=== PATIENT | male | born 1935 | race Caucasian/White ===

== ENCOUNTER → 2017-08-15 | Outpatient (CLI) | payer MEDICARE ==
[2017-08-15 16:57] LABS: TOTAL 25(OH) VITAMIN D 43.7 NG/ML (30.0-100.0)
[2017-08-15 17:07] LABS: ALBUMIN 3.7 GM/DL (3.2-5.2); ALBUMIN/GLOBULIN RATIO 1.12 (1.00-1.93); ALKALINE PHOSPHATASE 53 U/L (45-117); ALT/SGPT 22 U/L (12-78); ANION GAP 4 MEQ/L (8-16); AST/SGOT 19 U/L (7-37); BILIRUBIN,TOTAL 0.4 MG/DL (0.2-1.0); BLOOD UREA NITROGEN 14 MG/DL (7-18); CALCIUM LEVEL 8.3 MG/DL (8.8-10.2); CARBON DIOXIDE LEVEL 33 MEQ/L (21-32); CHLORIDE LEVEL 104 MEQ/L (98-107); CHOLESTEROL LEVEL 142 MG/DL (<200); CHOLESTEROL RISK RATIO 2.448 (<5); CREATININE FOR GFR 0.92 MG/DL (0.70-1.30); GLOMERULAR FILTRATION RATE > 60.0 (>35); GLUCOSE, FASTING 87 MG/DL (70-100); HDL CHOLESTEROL 58 MG/DL (>40); LDL CHOLESTEROL 71.8 MG/DL (<100); NON-HDL-C 84 MG/DL; POTASSIUM SERUM 4.8 MEQ/L (3.5-5.1); PROSTATIC SPECIFIC AG MONITOR 0.31 NG/ML (< 4.0); SODIUM LEVEL 141 MEQ/L (136-145); TRIGLYCERIDES LEVEL 61 MG/DL (<150)
[2017-08-15 17:40] LABS: BASO % 0.7 % (0.0-1.0); EOS # 0.1 10^3/uL (0.0-0.50); EOS % 2.6 % (0.0-3.0); HEMATOCRIT 41.4 % (42.0-52.0); HEMOGLOBIN 13.3 g/dl (13.5-17.5); IMMATURE GRANULOCYTE % 0.2 % (0-3.0); LYMPH # 1.3 10^3/uL (1.5-4.5); MEAN CORPUSCULAR HEMOGLOBIN 31.1 pg (27.0-33.0); MEAN CORPUSCULAR HGB CONC 32.1 g/dl (32.0-36.5); MONO # 0.6 10^3/uL (0.0-0.8); MONO % 12.1 % (0.0-5.0); NEUTROPHILS # 2.6 10^3/uL (1.8-7.7); NEUTROPHILS % 56.4 % (36.0-66.0); PLATELET COUNT, AUTOMATED 199 10^3/uL (150-450); RED BLOOD COUNT 4.27 10^6/uL (4.30-6.10); RED CELL DISTRIBUTION WIDTH 12.3 % (11.5-14.5); WHITE BLOOD COUNT 4.5 10^3/uL (4.0-10.0)
== END ==
LOC: M WUC 10:49
DX: E55.9 Vitamin D deficiency, unspecified (principal); N42.9 Disorder of prostate, unspecified; I10 Essential (primary) hypertension; Z79.899 Other long term (current) drug therapy
CPT/HCPCS: 80053

== ENCOUNTER → 2018-04-16 | Outpatient (REF) | payer MEDICARE ==
[2018-04-16 14:26] LABS: HEMOGLOBIN A1c 5.8 %
[2018-04-16 15:10] LABS: CPK CREATINE PHOSPHOKINASE 51 U/L (39-308); TOTAL PROTEIN 7.3 GM/DL (6.4-8.2)
[2018-04-16 15:17] LABS: VITAMIN B12 LEVEL 265 PG/ML
[2018-04-16 15:18] LABS: FOLATE 7.4 NG/ML
[2018-04-19 00:06] LABS: VITAMIN E(ALPHA TOCOPHEROL) 9.7 mg/L (9.0-29.0); VITAMIN E(GAMMA TOCOPHEROL) 0.9 mg/L (0.5-4.9)
[2018-04-21 10:14] LABS: ALBUMIN 4.17 GM/DL (3.29-5.55); ALBUMIN % 57.1 % (55.8-66.1); ALPHA-1-GLOBULIN % 3.2 % (2.9-4.9); ALPHA-1-GLOBULINS 0.23 GM/DL (0.17-0.41); ALPHA-2-GLOBULINS 0.77 GM/DL (0.42-0.99); ALPHA-2-GLOBULINS % 10.6 % (7.1-11.8); BETA-1-GLOBULINS 0.42 GM/DL (0.28-0.60); BETA-1-GLOBULINS % 5.8 % (4.7-7.2); BETA-2-GLOBULINS 0.42 GM/DL (0.19-0.55); BETA-2-GLOBULINS % 5.7 % (3.2-6.5); GAMMA GLOBULIN % 17.6 % (11.1-18.8); GAMMA GLOBULINS 1.28 GM/DL (0.65-1.58)
[2018-04-21 10:16] LABS: CERULOPLASMIN 20.7 mg/dL (16.0-31.0); VITAMIN B1 LEVEL WHOLE BLOOD 88.1 nmol/L (66.5-200.0)
== END ==
LOC: M LABNEURO 13:45
PROVIDERS: ATTEND Psychiatry & Neurology Neurology
DX: E11.9 Type 2 diabetes mellitus without complications (principal); G62.9 Polyneuropathy, unspecified; G72.9 Myopathy, unspecified; T56.4X1A Toxic effect of copper and its compounds, accidental (unintentional), initial encounter

== ENCOUNTER → 2018-09-03 | Outpatient (REF) | payer MEDICARE ==
[2018-09-03 18:03] LABS: FOLATE 7.9 NG/ML; VITAMIN B12 LEVEL > 2000 PG/ML
[2018-09-09 00:07] LABS: VITAMIN B1 LEVEL WHOLE BLOOD 144.2 nmol/L (66.5-200.0); VITAMIN E(ALPHA TOCOPHEROL) 12.6 mg/L (9.0-29.0); VITAMIN E(GAMMA TOCOPHEROL) 1.6 mg/L (0.5-4.9)
== END ==
LOC: M LABNEURO 13:39
PROVIDERS: ATTEND Psychiatry & Neurology Neurology
DX: M79.2 Neuralgia and neuritis, unspecified (principal)

== ENCOUNTER → 2018-09-28 | Outpatient (CLI) | payer MEDICARE ==
[2018-09-28 09:27] LABS: BASO % 0.8 % (0.0-1.0); EOS # 0.1 10^3/uL (0.0-0.50); EOS % 3.4 % (0.0-3.0); HEMATOCRIT 38.8 % (42.0-52.0); HEMOGLOBIN 12.9 g/dl (13.5-17.5); LYMPH # 1.1 10^3/uL (1.5-4.5); LYMPH % 28.2 % (24.0-44.0); MEAN CORPUSCULAR HGB CONC 33.2 g/dl (32.0-36.5); MEAN CORPUSCULAR VOLUME 96.3 fl (80.0-96.0); MONO # 0.5 10^3/uL (0.0-0.8); MONO % 13.5 % (0.0-5.0); NEUTROPHILS % 53.8 % (36.0-66.0); PLATELET COUNT, AUTOMATED 179 10^3/uL (150-450); RED BLOOD COUNT 4.03 10^6/uL (4.30-6.10); WHITE BLOOD COUNT 3.8 10^3/uL (4.0-10.0)
[2018-09-28 10:00] LABS: ALBUMIN 3.4 GM/DL (3.2-5.2); ALT/SGPT 16 U/L (12-78); BILIRUBIN,TOTAL 0.5 MG/DL (0.2-1.0); BLOOD UREA NITROGEN 10 MG/DL (7-18); CARBON DIOXIDE LEVEL 31 MEQ/L (21-32); CHLORIDE LEVEL 104 MEQ/L (98-107); CHOLESTEROL LEVEL 138 MG/DL (<200); CHOLESTEROL RISK RATIO 2.421 (<5); CREATININE FOR GFR 0.93 MG/DL (0.70-1.30); GLOMERULAR FILTRATION RATE > 60.0 (>35); GLUCOSE, FASTING 89 MG/DL (70-100); HDL CHOLESTEROL 57 MG/DL (>40); LDL CHOLESTEROL 70 MG/DL (<100); NON-HDL-C 81 MG/DL; POTASSIUM SERUM 4.4 MEQ/L (3.5-5.1); PROSTATIC SPECIFIC AG MONITOR 0.34 NG/ML (< 4.00); SODIUM LEVEL 139 MEQ/L (136-145); TOTAL PROTEIN 6.5 GM/DL (6.4-8.2); TRIGLYCERIDES LEVEL 56 MG/DL (<150)
[2018-09-28 10:14] LABS: TOTAL 25(OH) VITAMIN D 40.9 NG/ML (30.0-100.0)
== END ==
LOC: M WUC 08:13
PROVIDERS: ATTEND Family Medicine
DX: E55.9 Vitamin D deficiency, unspecified (principal); I10 Essential (primary) hypertension; N42.9 Disorder of prostate, unspecified

== ENCOUNTER → 2019-04-13 | Outpatient (CLI) | payer MEDICARE ==
[2019-04-13 17:51] LABS: HEMATOCRIT 43.1 % (42.0-52.0); HEMOGLOBIN 13.5 g/dl (13.5-17.5); MEAN CORPUSCULAR HEMOGLOBIN 30.8 pg (27.0-33.0); MEAN CORPUSCULAR HGB CONC 31.3 g/dl (32.0-36.5); MEAN CORPUSCULAR VOLUME 98.2 fl (80.0-96.0); PLATELET COUNT, AUTOMATED 223 10^3/uL (150-450); RED BLOOD COUNT 4.39 10^6/uL (4.30-6.10); WHITE BLOOD COUNT 5.3 10^3/uL (4.0-10.0)
[2019-04-13 18:04] LABS: ALBUMIN 3.8 GM/DL (3.2-5.2); ALT/SGPT 19 U/L (12-78); BILIRUBIN,TOTAL 0.4 MG/DL (0.2-1.0); BLOOD UREA NITROGEN 17 MG/DL (7-18); CALCIUM LEVEL 8.6 MG/DL (8.8-10.2); CARBON DIOXIDE LEVEL 31 MEQ/L (21-32); CHLORIDE LEVEL 99 MEQ/L (98-107); CREATININE FOR GFR 1.05 MG/DL (0.70-1.30); GLOMERULAR FILTRATION RATE > 60.0 (>35); GLUCOSE, FASTING 77 MG/DL (70-100); POTASSIUM SERUM 4.6 MEQ/L (3.5-5.1); SODIUM LEVEL 135 MEQ/L (136-145); TOTAL PROTEIN 7.4 GM/DL (6.4-8.2)
[2019-04-13 18:11] LABS: TOTAL 25(OH) VITAMIN D 38.6 NG/ML (30.0-100.0); VITAMIN B12 LEVEL 947 PG/ML (247-911)
== END ==
LOC: M WUC 13:41
PROVIDERS: ATTEND Family Medicine
DX: G62.9 Polyneuropathy, unspecified (principal); E55.9 Vitamin D deficiency, unspecified; I10 Essential (primary) hypertension

== ENCOUNTER → 2019-10-08 | Outpatient (CLI) | payer MEDICARE ==
[2019-10-08 09:06] LABS: BASO % 0.4 % (0.0-1.0); EOS # 0.4 10^3/uL (0.0-0.5); EOS % 4.8 % (0.0-3.0); HEMATOCRIT 39.3 % (42.0-52.0); HEMOGLOBIN 12.7 g/dl (13.5-17.5); LYMPH # 1.2 10^3/uL (1.5-5.0); LYMPH % 14.8 % (24.0-44.0); MEAN CORPUSCULAR HEMOGLOBIN 30.5 pg (27.0-33.0); MEAN CORPUSCULAR HGB CONC 32.3 g/dl (32.0-36.5); MEAN CORPUSCULAR VOLUME 94.5 fl (80.0-96.0); MONO # 0.9 10^3/uL (0.0-0.8); MONO % 11.4 % (0.0-5.0); NEUTROPHILS # 5.4 10^3/uL (1.5-8.5); NEUTROPHILS % 68.2 % (36.0-66.0); PLATELET COUNT, AUTOMATED 272 10^3/uL (150-450); RED BLOOD COUNT 4.16 10^6/uL (4.30-6.10); WHITE BLOOD COUNT 7.9 10^3/uL (4.0-10.0)
[2019-10-08 10:12] LABS: ALBUMIN 3.2 GM/DL (3.2-5.2); ALT/SGPT 13 U/L (12-78); BILIRUBIN,TOTAL 0.5 MG/DL (0.2-1.0); BLOOD UREA NITROGEN 13 MG/DL (7-18); CALCIUM LEVEL 8.4 MG/DL (8.8-10.2); CARBON DIOXIDE LEVEL 30 MEQ/L (21-32); CHLORIDE LEVEL 102 MEQ/L (98-107); CREATININE FOR GFR 0.98 MG/DL (0.70-1.30); GLOMERULAR FILTRATION RATE > 60.0 (>35); GLUCOSE, FASTING 94 MG/DL (70-100); POTASSIUM SERUM 4.8 MEQ/L (3.5-5.1); SODIUM LEVEL 138 MEQ/L (136-145)
--- NOTE | 2019-10-08 10:22 | ECGEPIP ---
[facility] Test Date: 2019-10-08 Pat Name: RITCHIE KWAN Department: Room: - Gender: Male Or Manager: DAMIAN : 1935 Requested By: Gustavo Mathews Order Number: [id number] Reading MD: Dai García Measurements Intervals [place] Rate: 75 P: 83 NV: 191 QRS: 30 QRSD: 138 T: 3 QT: 417 QTc: 468 Interpretive Statements SINUS RHYTHM RIGHT BUNDLE BRANCH BLOCK PROLONG QTC NO PRIOR Electronically Signed on 10-08-2019 10:22:36 EDT by Dai García
--- NOTE | 2019-10-08 10:27 | REP ---
CHEST, TWO VIEWS: COMPARISON: 07/13/2008 There is no acute infiltrate. The lungs are clear. The heart is normal in size. There is mild calcification and ectasia of the thoracic aorta. Mediastinal silhouette is unchanged. Metallic clips are seen in the left neck soft tissues as on prior study. IMPRESSION: No acute pulmonary disease. Electronically Signed by Khari Byrd MD 10/10/2019 11:01 P
== END ==
LOC: M LAB 08:00
PROVIDERS: ATTEND Podiatrist
DX: M20.42 Other hammer toe(s) (acquired), left foot (principal)

== ENCOUNTER 2019-10-29 06:27 | Day surgery (SDC) | payer MEDICARE ==
[2019-10-29] MEDS ORDERED: ceFAZolin 2 GM/D5W 50 ML IV BAG (J0690 PER 500MG) ONE (06:34)
[2019-10-29] MEDS ORDERED: dexameTHASONE 4 MG/ML 1ML VIAL (J1100 PER 1MG) As Ordered ONE (07:05)
[2019-10-29] MEDS ORDERED: BUPIVACAINE HCL 0.5% 30 ML VIAL As Ordered ONE (07:05)
[2019-10-29] MEDS ORDERED: LIDOCAINE 2% MDV 20ML VIAL As Ordered ONE (07:05)
[2019-10-29] MEDS ORDERED: NEOSPORIN GU IRRIG 20 ML VIAL As Ordered ONE (07:06)
[2019-10-29] MEDS ORDERED: BACITRACIN PWD 50,000 UNITS VIAL As Ordered ONE ×2 (07:06→07:11)
[2019-10-29] MEDS ORDERED: propofoL 200 MG/20 ML VIAL As Ordered ONE ×2 (07:16→08:30)
[2019-10-29] MEDS ORDERED: LIDOCAINE 2% 100MG/5ML SDV (FOR ANES.) As Ordered ONE (07:16)
[2019-10-29] MEDS ORDERED: ePHEDrine SULFATE 25 MG/5 ML(5MG/ML) SYRINGE As Ordered ONE (09:43)
[2019-10-29] MEDS ORDERED: KETAMINE HCL 200 MG/20 ML VIAL As Ordered ONE (09:45)
--- NOTE | 2019-12-20 07:18 | REP ---
PORTABLE LEFT FOOT: 3-VIEWS HISTORY: Postop. [place]. This report was delayed due to a malware attack on this facility. FINDINGS: Portable obtained 3-view left foot series demonstrates the first metatarsal osteotomy pin in good position. There is overlying dressing material. There are pins through the DIP and PIP joints of the second, third and fourth digits. Osteotomies have been performed of the second through fifth proximal phalanges with resection of each distal portion of each proximal phalanx. IMPRESSION: Postoperative changes, as above. JULIANA
--- NOTE | 2020-01-06 09:05 | RO ---
Date of Operation: 10/29/2019 Surgeon: Gustavo Mathews DPM Hand Profiler: None. 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 2. Hammertoe deformity, 2nd toe, left foot. 3. Hammertoe deformity, 3rd toe, left foot. 4. Hammertoe deformity, 4th toe, left foot. 5. Hammertoe deformity, 5th toe, left foot. Post-op diagnosis: Procedure: Irrigation: Dilute bacitracin, neomycin, polymyxin B solution. Hemostasis: Ankle pneumatic tourniquet at 200 mm of mercury for 67 minutes on the left ankle. Hardware Utilized: Arthrex headless 3.0 x 22 mm compression screw and a 0.045 K wire times three. Description of Operation: On 10/29/2019, patient was taken from his hospital room to the operating room and placed on the operating table in the supine position. Following the induction of IV induction and local and regional anesthesia, the left lower extremity was prepped and draped in the usual aseptic manner. Ankle pneumatic tourniquet was rapidly inflated. Left lower extremity was returned to the operating room. Sterile draping was completed, and the following procedure was performed. INES BUNIONECTOMY AND INTERNAL SCREW FIXATION, LEFT FOOT: Attention was directed to patient's left foot, where a 6 cm incision was placed over the 1st metatarsophalangeal joint of the left foot medial to the extensor tendon. The incision was deepened through subcutaneous tissues and all coursing venous tributaries were identified, underscored, clamped, cut, ligated, and electrocoagulated as necessary. A linear capsulotomy was performed in the same plane as original skin incision. The capsule and periosteal structures were then dissected free in one continuous layer, dorsally, medially, and laterally, thus creating a capsular periosteal-type envelope. This then brought into view the hypertrophied medial eminence of the 1st metatarsal, which was osteotomized from dorsal to plantar through and through, exiting medial the sesamoidal groove. Attention was then directed into the first intermetatarsal space, where dissection was carried down to the level of the conjoined tendon, which was sharply released from the fibular sesamoid. Attention was then directed to the medial surface of the 1st metatarsal, where a V-shaped osteotomy was performed with a long plantar and short dorsal wing. Upon creation of this osteotomy, capital fragment was transposed 40% of the width of the shaft of the 1st metatarsal and fixated with a 3.0 x 22 mm headless compression screw. The screw did not penetrate the inferior cartilage under direct visualization. The redundant cortical spike was then osteotomized from dorsal to plantar through and through. Medial surface was rasped to a smooth contour. There was a small spur on the dorsal aspect of the 1st metatarsal, which was rongeuered and then filed smooth with a hand-held rasp. The wound was flushed with copious amounts of dilute bacitracin, neomycin, and polymyxin B solution. Attention was directed toward closure, where the capsular structures were coapted and maintained utilizing 2-0 Monocryl in a simple interrupted type fashion. Subcutaneous tissue was coapted and maintained using 4-0 Monocryl in a simple interrupted type fashion. Skin incision was coapted the maintained utilizing 4-0 Prolene in a simple interrupted type fashion. Attention was then directed to the 2nd toe, where the following procedure was performed. PROXIMAL INTERPHALANGEAL JOINT ARTHROPLASTY, 2ND TOE, LEFT FOOT: Attention was directed to the patient's 2nd toe, where a 3 cm incision was placed over the proximal interphalangeal joint. The incision was deepened through the subcutaneous tissues. All coursing venous tributaries were identified, underscored, clamped, cut, ligated, electrocoagulated as necessary, and a linear capsulotomy and tenotomy were performed to the level of the proximal interphalangeal joint. Medial and lateral collateral ligaments were sharply dissected free from the head of the proximal phalanx. Utilizing a power saw, and osteotomy was performed through the anatomical neck of the proximal phalanx from dorsal to plantar through and through. Utilizing a sagittal saw the cartilage was removed from the base of the middle phalanx. The wound was flushed with copious amounts of dilute bacitracin, neomycin, and polymyxin B solution. Utilizing a 0.045 wire, wire was driven through the middle and distal phalanx and retrograded into the proximal phalanx utilizing C-arm for appropriate placement. The wire was bent and the protective cap then placed. The extensor tendon was coapted and maintained utilizing 4-0 Supramid and a 4-stranded Walls repair. Skin was coapted and maintained utilizing 4-0 Prolene in a simple interrupted and horizontal mattress fashion. Attention was then directed to the 3rd toe, where the following procedure was performed. PROXIMAL INTERPHALANGEAL JOINT ARTHROPLASTY WITH EXTERNAL WIRE FIXATION, 0.045 TIMES ONE, 3RD TOE, LEFT FOOT: Attention was directed to the patient's 3rd toe of the left foot. The procedure performed on the 2nd toe was now performed on the 3rd toe without variation or deletion, the only exception being that of anatomical location. Attention was then directed to the 4th toe, where the following procedure was performed. PROXIMAL INTERPHALANGEAL JOINT ARTHROPLASTY WITH EXTERNAL WIRE FICTION, 0.045 TIMES ONE, 4TH TOE, LEFT FOOT: Attention was directed to the patient's 4th toe of the left foot. The procedure performed on the 2nd toe was now performed on the 4th toe without variation or deletion, the only exception being that of anatomical location. Attention was then directed to the 5th toe, where the following procedure was performed. PROXIMAL INTERPHALANGEAL JOINT ARTHROPLASTY, 5TH TOE: Attention was directed to the patient's 5th toe of the left foot, where the procedure performed on the 2nd toe was now performed on the 5th toe with the following variations. The cartilage was not removed from the base of the middle phalanx, and no wire was utilized to stabilize the 5th toe. Attention was then directed toward closure. Following the completion of the surgical procedure, 4 mg of dexamethasone sodium phosphate was instilled proximal the surgical site. Attention was directed toward bandaging, where a sterile compressive bandage was applied consisting of Adaptic, 4 x 4's, 4 x 4 sponge, Vani, Kerlix, and Coban. The ankle pneumatic tourniquet was rapidly deflated. Instantaneous capillary filling time was noted to digits 1-5 of the patient's left foot. Postoperative instructions were given upon discharge. JULIANA
== END 2019-10-29 10:00 | disposition home or self-care (01) ==
LOC: M SDC 06:27
PROVIDERS: ATTEND Podiatrist
DX: M20.12 Hallux valgus (acquired), left foot (principal); M20.42 Other hammer toe(s) (acquired), left foot; I10 Essential (primary) hypertension; Z98.61 Coronary angioplasty status; Z79.899 Other long term (current) drug therapy; Z87.891 Personal history of nicotine dependence
CPT/HCPCS: 28285; 28296; 73630; 88300; C1713; J0690; J1100

== ENCOUNTER → 2019-12-07 | Outpatient (REF) | payer MEDICARE ==
[2019-12-07 16:14] LABS: APPEARANCE, URINE CLEAR (CLEAR); BACTERIA, URINE AUTO NEGATIVE (NEGATIVE); BILIRUBIN, URINE AUTO NEGATIVE (NEGATIVE); BLOOD, URINE BLOOD NEGATIVE (NEGATIVE); COLOR, URINE STRAW (YELLOW); GLUCOSE, URINE (UA) AUTO NEGATIVE (NEGATIVE); KETONE, URINE AUTO NEGATIVE (NEGATIVE); LEUKOCYTE ESTERASE, URINE AUTO NEGATIVE (NEGATIVE); NITRITE, URINE AUTO NEGATIVE (NEGATIVE); PROTEIN, URINE AUTO NEGATIVE (NEGATIVE); RBC, URINE AUTO 2 /HPF (0-3); SPECIFIC GRAVITY URINE AUTO 1.005 (1.002-1.035); SQUAMOUS EPITHELIAL CELL UR AU 0 /HPF (0-6); UROBILINOGEN, URINE AUTO 0.2 mg/dL (0.0-2.0); WBC, URINE AUTO 1 /HPF (0-3)
== END ==
LOC: M LAB REF 12:15
PROVIDERS: ATTEND Family Medicine
DX: R30.0 Dysuria (principal)

== ENCOUNTER → 2020-06-14 | Outpatient (CLI) | payer MEDICARE | LOC: M WUC 08:39 | PROVIDERS: ATTEND Family Medicine | DX: M25.50 Pain in unspecified joint (principal) ==

== ENCOUNTER → 2020-07-07 | Outpatient (CLI) | payer MEDICARE ==
[2020-07-07 09:53] LABS: HEMATOCRIT 38.8 % (42.0-52.0); HEMOGLOBIN 12.1 g/dl (13.5-17.5); MEAN CORPUSCULAR HEMOGLOBIN 29.7 pg (27.0-33.0); MEAN CORPUSCULAR HGB CONC 31.2 g/dl (32.0-36.5); MEAN CORPUSCULAR VOLUME 95.1 fl (80.0-96.0); PLATELET COUNT, AUTOMATED 170 10^3/uL (150-450); RED BLOOD COUNT 4.08 10^6/uL (4.30-6.10); WHITE BLOOD COUNT 6.5 10^3/uL (4.0-10.0)
[2020-07-07 10:29] LABS: ALBUMIN 3.1 GM/DL (3.2-5.2); ALT/SGPT 21 U/L (12-78); BILIRUBIN,TOTAL 0.6 MG/DL (0.2-1.0); BLOOD UREA NITROGEN 19 MG/DL (7-18); CALCIUM LEVEL 8.3 MG/DL (8.8-10.2); CARBON DIOXIDE LEVEL 31 MEQ/L (21-32); CHLORIDE LEVEL 102 MEQ/L (98-107); CHOLESTEROL LEVEL 155 MG/DL (<200); CREATININE FOR GFR 0.94 MG/DL (0.70-1.30); GLOMERULAR FILTRATION RATE > 60.0 (>35); GLUCOSE, FASTING 89 MG/DL (70-100); HDL CHOLESTEROL 82 MG/DL (>40); LDL CHOLESTEROL 64 MG/DL (<100); NON-HDL-C 73 MG/DL; POTASSIUM SERUM 4.6 MEQ/L (3.5-5.1); SODIUM LEVEL 136 MEQ/L (136-145); TOTAL PROTEIN 6.2 GM/DL (6.4-8.2); TRIGLYCERIDES LEVEL 46 MG/DL (<150)
[2020-07-07 10:34] LABS: TOTAL 25(OH) VITAMIN D 33.8 NG/ML (30.0-100.0); VITAMIN B12 LEVEL 795 PG/ML (247-911)
== END ==
LOC: M WUC 08:07
PROVIDERS: ATTEND Family Medicine
DX: G62.9 Polyneuropathy, unspecified (principal); E55.9 Vitamin D deficiency, unspecified; I10 Essential (primary) hypertension

== ENCOUNTER → 2020-09-22 | Outpatient (REF) | payer MEDICARE | LOC: M LAB REF 12:58 | PROVIDERS: ATTEND Nurse Practitioner Family | DX: R36.9 Urethral discharge, unspecified (principal) ==

== ENCOUNTER → 2021-07-02 | Outpatient (CLI) | payer MEDICARE ==
[2021-07-02 11:04] LABS: HEMATOCRIT 40.5 % (42.0-52.0); HEMOGLOBIN 13.1 g/dl (13.5-17.5); MEAN CORPUSCULAR HEMOGLOBIN 31.3 pg (27.0-33.0); MEAN CORPUSCULAR HGB CONC 32.3 g/dl (32.0-36.5); MEAN CORPUSCULAR VOLUME 96.9 fl (80.0-96.0); PLATELET COUNT, AUTOMATED 214 10^3/uL (150-450); RED BLOOD COUNT 4.18 10^6/uL (4.30-6.10); WHITE BLOOD COUNT 4.7 10^3/uL (4.0-10.0)
[2021-07-02 11:37] LABS: ALBUMIN 3.3 GM/DL (3.2-5.2); BILIRUBIN,TOTAL 0.5 MG/DL (0.2-1.0); CALCIUM LEVEL 8.6 MG/DL (8.8-10.2); CHOLESTEROL RISK RATIO 2.771 (<5); CREATININE FOR GFR 1.27 MG/DL (0.70-1.30); GLOMERULAR FILTRATION RATE 57.2 (>35); POTASSIUM SERUM 4.7 MEQ/L (3.5-5.1); TOTAL PROTEIN 6.6 GM/DL (6.4-8.2)
[2021-07-02 11:44] LABS: TOTAL 25(OH) VITAMIN D 61.3 NG/ML (30.0-100.0)
== END ==
LOC: M WUC 08:14
PROVIDERS: ATTEND Family Medicine
DX: E55.9 Vitamin D deficiency, unspecified (principal); I10 Essential (primary) hypertension; G62.9 Polyneuropathy, unspecified; Z79.899 Other long term (current) drug therapy

== ENCOUNTER → 2022-06-28 | Outpatient (CLI) | payer MEDICARE ==
[2022-06-28 11:11] LABS: BASO # 0.1 10^3/uL (0.0-0.2); EOS # 0.4 10^3/uL (0.0-0.5); EOS % 7.9 % (0.0-3.0); HEMATOCRIT 40.4 % (42.0-52.0); HEMOGLOBIN 12.8 g/dl (13.5-17.5); LYMPH # 1.8 10^3/uL (1.5-5.0); MEAN CORPUSCULAR HEMOGLOBIN 30.5 pg (27.0-33.0); MEAN CORPUSCULAR HGB CONC 31.7 g/dl (32.0-36.5); MEAN CORPUSCULAR VOLUME 96.2 fl (80.0-96.0); MONO # 0.7 10^3/uL (0.0-0.8); MONO % 13.2 % (2.0-8.0); NEUTROPHILS # 2.3 10^3/uL (1.5-8.5); NEUTROPHILS % 43.7 % (36.0-66.0); PLATELET COUNT, AUTOMATED 220 10^3/uL (150-450); WHITE BLOOD COUNT 5.2 10^3/uL (4.0-10.0)
[2022-06-28 11:45] LABS: ALBUMIN 3.4 G/DL (3.2-5.2); ALKALINE PHOSPHATASE 66 U/L (46-116); ALT/SGPT 24 U/L (7.0-40); AST/SGOT 24 U/L (<34); BILIRUBIN,TOTAL 0.5 MG/DL (0.3-1.2); BLOOD UREA NITROGEN 18 MG/DL (9-23); CALCIUM LEVEL 8.8 MG/DL (8.3-10.6); CARBON DIOXIDE LEVEL 33 MMOL/L (20-31); CHLORIDE LEVEL 101 MMOL/L (98-107); CHOLESTEROL LEVEL 151 MG/DL (<200); CHOLESTEROL RISK RATIO 2.79 (<5); CREATININE FOR GFR 1.11 MG/DL (0.70-1.30); GLOMERULAR FILTRATION RATE > 60.0 (>35); GLUCOSE, FASTING 96 MG/DL (74-106); HDL CHOLESTEROL 54.1 MG/DL (>40); LDL CHOLESTEROL 83.3 MG/DL (<100); NON-HDL-C 96.9 MG/DL; SODIUM LEVEL 138 MMOL/L (136-145); TOTAL 25(OH) VITAMIN D 69.7 NG/ML (20.0-100.0); TOTAL PROTEIN 6.5 G/DL (5.7-8.2); TRIGLYCERIDES LEVEL 68 MG/DL (<150)
== END ==
LOC: M WUC 08:11
PROVIDERS: ATTEND Family Medicine
DX: E55.9 Vitamin D deficiency, unspecified (principal); E78.5 Hyperlipidemia, unspecified

== ENCOUNTER → 2022-11-26 | Outpatient (REF) | payer MEDICARE | LOC: M LAB REF 12:24 | PROVIDERS: ATTEND Ophthalmology | DX: L82.1 Other seborrheic keratosis (principal) ==

== ENCOUNTER 2023-05-26 11:24 | Inpatient (IN) | payer MEDICARE ==
[~2023-05-26] VITALS: Ht 172.7 cm; Wt 86.6 kg
[2023-05-26] MEDS ORDERED: GABA-282 PO (11:45)
[2023-05-26] MEDS ORDERED: ATOR1TAB21 PO (11:45)
[2023-05-26] MEDS ORDERED: LISI5TAB11 PO (11:45)
[2023-05-26] MEDS ORDERED: REST0.05 OU (11:45)
[2023-05-26] MEDS ORDERED: ERGO500029 PO (11:45)
[2023-05-26] MEDS ORDERED: TRAM50TA2 PO (11:45)
[2023-05-26] MEDS ORDERED: LORA-1041 (11:45)
[2023-05-26] MEDS ORDERED: TRAV2.5D OU (11:45)
[2023-05-26] MEDS ORDERED: ZOLP10TA2 PO (11:45)
[2023-05-26 13:51] LABS: BASO % 0.1 % (0.0-1.0); EOS % 0.1 % (0.0-3.0); HEMOGLOBIN 12.1 g/dl (13.5-17.5); LYMPH # 0.5 10^3/uL (1.5-5.0); LYMPH % 3.5 % (24.0-44.0); MEAN CORPUSCULAR HEMOGLOBIN 31.9 pg (27.0-33.0); MEAN CORPUSCULAR HGB CONC 33.6 g/dl (32.0-36.5); MONO # 1.3 10^3/uL (0.0-0.8); MONO % 8.9 % (2.0-8.0); NEUTROPHILS # 12.3 10^3/uL (1.5-8.5); NEUTROPHILS % 86.9 % (36.0-66.0); PLATELET COUNT, AUTOMATED 194 10^3/uL (150-450); RED BLOOD COUNT 3.79 10^6/uL (4.30-6.10); WHITE BLOOD COUNT 14.2 10^3/uL (4.0-10.0)
[2023-05-26 14:19] LABS: CK-MB VALUE MASS 10.4 NG/ML (<3.6)
[2023-05-26 14:22] LABS: MB/CK RELATIVE INDEX 2.37 (< OR =4)
[2023-05-26 14:23] LABS: ALBUMIN 2.8 G/DL (3.2-5.2); BILIRUBIN,DIRECT 0.2 MG/DL (<0.4); BILIRUBIN,TOTAL 0.6 MG/DL (0.3-1.2); CREATININE FOR GFR 2.82 MG/DL (0.70-1.30); GLOMERULAR FILTRATION RATE 22.7 (>35); POTASSIUM SERUM 5.2 MMOL/L (3.5-5.1); TOTAL PROTEIN 6.1 G/DL (5.7-8.2)
[2023-05-26 14:24] LABS: FREE T4 0.86 NG/DL (0.89-1.76); THYROID STIMULATING HORMONE 1.355 uIU/ML (0.55-4.78)
[2023-05-26] MEDS: cefTRIAXone SOD 2 GM in D5W MINI-BAG PLUS 50 ML IV ONE (14:25)
[2023-05-26 15:23] LABS: CK-MB VALUE MASS 12.7 NG/ML (<3.6)
[2023-05-26 15:24] LABS: MB/CK RELATIVE INDEX 2.71 (< OR =4)
[2023-05-26] MEDS ORDERED: B-12100010 PO (15:24)
[2023-05-26] MEDS ORDERED: GLUC1TAB58 PO (15:24)
[2023-05-26] MEDS ORDERED: OMEGCAP4 PO (15:24)
[2023-05-26] MEDS ORDERED: PRES10CA2 PO (15:24)
[2023-05-26] MEDS ORDERED: B-1100TA2 PO (15:24)
[2023-05-26] MEDS ORDERED: HOME MED LIST COMPLETE! XX SCH (15:30)
[2023-05-26 16:35] LABS: INR 1.03; PARTIAL THROMBOPLASTIN TIME 29.2 SECONDS (24.8-34.2); PROTHROMBIN TIME 13.2 SECONDS (12.5-14.5)
[2023-05-26] MEDS ORDERED: ACETAMINOPHEN TAB 650MG DOSE (2X325MG) PO PRN (16:45)
[2023-05-26] MEDS ORDERED: MOM 30ML SUSPENSION UDC PO PRN (16:45)
[2023-05-26 17:49] LABS: C REACTIVE PROTEIN QUANTITATIV 23.6 MG/DL (<1.0)
[2023-05-26 17:58] LABS: PROCALCITONIN 1.13 ng/ml
[2023-05-26] MEDS: PATIROMER SORBITEX CALCIUM 8.4 GM POWDER PACKET (VELTASSA) PO ONE (18:44)
[2023-05-26] MEDS: MOM 30ML SUSPENSION UDC PO SCH (18:44)
[2023-05-26] MEDS: MIRALAX *UNIT DOSE* 17GM PACKET PO SCH (18:45)
[2023-05-26] MEDS: METAMUCIL (PSYLLIUM) PACKET PO SCH (18:45)
[2023-05-26 20:26] VITALS: BP 122/55; TEMP 98.2; O2SAT 98
[2023-05-26 21:00] VITALS: O2SAT 98
[2023-05-26] MEDS: DOCUSATE SODIUM 100MG CAPSULE PO SCH (21:00)
[2023-05-26] MEDS: **hydrALAZINE** 50 MG TAB PO SCH (21:05)
[2023-05-26] MEDS: zolPIDEM TARTRATE 5 MG TAB PO SCH (21:11)
[2023-05-26] MEDS: HEPARIN SOD (PORCINE) 5000UNITS/ML 1ML VIAL/SYRINGE SC SCH (21:11)
[2023-05-26 22:00] VITALS: O2SAT 99
[2023-05-26 23:00] VITALS: O2SAT 97
[2023-05-27] VITALS (17 sets, daily range): BP systolic 107–156; BP diastolic 54–72; TEMP 96.3–99.1; O2SAT 92–98
[2023-05-27 05:29] LABS: BASO % 0.2 % (0.0-1.0); EOS % 0.2 % (0.0-3.0); HEMATOCRIT 35.2 % (42.0-52.0); LYMPH # 0.5 10^3/uL (1.5-5.0); LYMPH % 5.3 % (24.0-44.0); MEAN CORPUSCULAR HEMOGLOBIN 31.9 pg (27.0-33.0); MEAN CORPUSCULAR HGB CONC 34.1 g/dl (32.0-36.5); MEAN CORPUSCULAR VOLUME 93.6 fl (80.0-96.0); MONO # 0.9 10^3/uL (0.0-0.8); MONO % 10.7 % (2.0-8.0); NEUTROPHILS % 83.2 % (36.0-66.0); PLATELET COUNT, AUTOMATED 191 10^3/uL (150-450); RED BLOOD COUNT 3.76 10^6/uL (4.30-6.10); WHITE BLOOD COUNT 8.4 10^3/uL (4.0-10.0)
[2023-05-27 05:39] LABS: ALBUMIN 2.4 G/DL (3.2-5.2); CALCIUM LEVEL 7.7 MG/DL (8.3-10.6); CREATININE FOR GFR 2.38 MG/DL (0.70-1.30); GLOMERULAR FILTRATION RATE 27.6 (>35); PHOSPHORUS LEVEL 3.7 MG/DL (2.4-5.1); POTASSIUM SERUM 5.5 MMOL/L (3.5-5.1)
[2023-05-27] MEDS: ATORVASTATIN 20 MG TAB PO SCH (08:23)
[2023-05-27] MEDS: MIRALAX *UNIT DOSE* 17GM PACKET PO SCH (08:23)
[2023-05-27] MEDS: CYANOCOBALAMIN 500 MCG TAB PO SCH (08:23)
[2023-05-27] MEDS: THIAMINE 100 MG TAB PO SCH (08:23)
[2023-05-27 10:29] LABS: TOTAL 25(OH) VITAMIN D 34.1 NG/ML (20.0-100.0)
[2023-05-27] MEDS: PATIROMER SORBITEX CALCIUM 8.4 GM POWDER PACKET (VELTASSA) PO ONE (11:11)
[2023-05-27] MEDS: FUROSEMIDE 100MG/10ML VIAL IV ONE (12:50)
[2023-05-27] MEDS: cefTRIAXone SOD 1 GM in D5W MINI-BAG PLUS 50 ML IV SCH (13:56)
[2023-05-27] MEDS: OMEGA-3 1000MG CAPSULE PO SCH (13:57)
[2023-05-27] MEDS: SENNA 8.6 MG TAB (SENOKOT) PO SCH (13:57)
[2023-05-28] VITALS (18 sets, daily range): BP systolic 135–169; BP diastolic 67–78; TEMP 97.4–98; O2SAT 87–95
[2023-05-28 04:51] LABS: BASO % 0.2 % (0.0-1.0); EOS % 0.5 % (0.0-3.0); HEMATOCRIT 36.3 % (42.0-52.0); HEMOGLOBIN 12.5 g/dl (13.5-17.5); LYMPH # 0.5 10^3/uL (1.5-5.0); LYMPH % 8.3 % (24.0-44.0); MEAN CORPUSCULAR HEMOGLOBIN 31.1 pg (27.0-33.0); MEAN CORPUSCULAR HGB CONC 34.4 g/dl (32.0-36.5); MEAN CORPUSCULAR VOLUME 90.3 fl (80.0-96.0); MONO # 1.1 10^3/uL (0.0-0.8); MONO % 17.6 % (2.0-8.0); NEUTROPHILS # 4.7 10^3/uL (1.5-8.5); NEUTROPHILS % 73.1 % (36.0-66.0); PLATELET COUNT, AUTOMATED 202 10^3/uL (150-450); RED BLOOD COUNT 4.02 10^6/uL (4.30-6.10); WHITE BLOOD COUNT 6.4 10^3/uL (4.0-10.0)
[2023-05-28 05:16] LABS: CORTISOL AM 23.9 UG/DL (4.3-22.4)
[2023-05-28 05:18] LABS: ALBUMIN 2.4 G/DL (3.2-5.2); CALCIUM LEVEL 8.1 MG/DL (8.3-10.6); CREATININE FOR GFR 1.99 MG/DL (0.70-1.30); GLOMERULAR FILTRATION RATE 33.9 (>35); PHOSPHORUS LEVEL 4.2 MG/DL (2.4-5.1)
[2023-05-28] MEDS ORDERED: MOM 30ML SUSPENSION UDC PO PRN (07:15)
[2023-05-28] MEDS: MIRALAX *UNIT DOSE* 17GM PACKET PO SCH (09:00)
[2023-05-28 09:25] LABS: TOTAL PROTEIN,RANDOM URINE 39.6 MG/DL (0.0-14.0)
[2023-05-28 09:30] LABS: CREATININE,RANDOM URINE 57.8 MG/DL
[2023-05-28] MEDS: traMADol 50 MG TAB PO PRN ×2 (10:25→21:40)
[2023-05-28] MEDS: PATIROMER SORBITEX CALCIUM 8.4 GM POWDER PACKET (VELTASSA) PO ONE (11:49)
[2023-05-28] MEDS: TOLVAPTAN 7.5 MG HALF-TAB PO ONE (11:49)
[2023-05-28] MEDS: METAMUCIL (PSYLLIUM) PACKET PO SCH (11:50)
[2023-05-28] MEDS: GABAPENTIN 100 MG CAP PO SCH (15:09)
[2023-05-29] VITALS (12 sets, daily range): BP systolic 141–160; BP diastolic 67–79; TEMP 96.8–98; O2SAT 89–98
[2023-05-29 06:13] LABS: BASO % 0.3 % (0.0-1.0); EOS % 0.5 % (0.0-3.0); HEMATOCRIT 37.6 % (42.0-52.0); HEMOGLOBIN 12.7 g/dl (13.5-17.5); LYMPH # 0.6 10^3/uL (1.5-5.0); LYMPH % 7.4 % (24.0-44.0); MEAN CORPUSCULAR HEMOGLOBIN 30.9 pg (27.0-33.0); MEAN CORPUSCULAR HGB CONC 33.8 g/dl (32.0-36.5); MEAN CORPUSCULAR VOLUME 91.5 fl (80.0-96.0); MONO # 1.6 10^3/uL (0.0-0.8); MONO % 19.8 % (2.0-8.0); NEUTROPHILS # 5.6 10^3/uL (1.5-8.5); NEUTROPHILS % 71.7 % (36.0-66.0); PLATELET COUNT, AUTOMATED 223 10^3/uL (150-450); RED BLOOD COUNT 4.11 10^6/uL (4.30-6.10); WHITE BLOOD COUNT 7.9 10^3/uL (4.0-10.0)
[2023-05-29 06:38] LABS: ALBUMIN 2.4 G/DL (3.2-5.2); CREATININE FOR GFR 1.8 MG/DL (0.70-1.30); GLOMERULAR FILTRATION RATE 38.1 (>35); PHOSPHORUS LEVEL 4.2 MG/DL (2.4-5.1); POTASSIUM SERUM 4.8 MMOL/L (3.5-5.1)
[2023-05-29] MEDS: TRAVOPROST 0.004% OU SCH (19:04)
[2023-05-29] MEDS: CYCLOSPORINE 0.05% OU SCH (21:13)
[2023-05-30 04:08] VITALS: BP 123/65; TEMP 97.5; O2SAT 93
[2023-05-30 05:31] LABS: BASO % 0.4 % (0.0-1.0); EOS # 0.1 10^3/uL (0.0-0.5); EOS % 0.9 % (0.0-3.0); HEMATOCRIT 35.8 % (42.0-52.0); LYMPH # 0.9 10^3/uL (1.5-5.0); LYMPH % 11.3 % (24.0-44.0); MEAN CORPUSCULAR HEMOGLOBIN 30.9 pg (27.0-33.0); MEAN CORPUSCULAR HGB CONC 33.5 g/dl (32.0-36.5); MEAN CORPUSCULAR VOLUME 92.3 fl (80.0-96.0); MONO # 1.3 10^3/uL (0.0-0.8); MONO % 16.8 % (2.0-8.0); NEUTROPHILS # 5.4 10^3/uL (1.5-8.5); NEUTROPHILS % 70.1 % (36.0-66.0); PLATELET COUNT, AUTOMATED 205 10^3/uL (150-450); RED BLOOD COUNT 3.88 10^6/uL (4.30-6.10); WHITE BLOOD COUNT 7.6 10^3/uL (4.0-10.0)
[2023-05-30 05:52] LABS: ALBUMIN 2.2 G/DL (3.2-5.2); CALCIUM LEVEL 7.8 MG/DL (8.3-10.6); CREATININE FOR GFR 1.9 MG/DL (0.70-1.30); GLOMERULAR FILTRATION RATE 35.8 (>35); PHOSPHORUS LEVEL 4.5 MG/DL (2.4-5.1); POTASSIUM SERUM 4.7 MMOL/L (3.5-5.1)
[2023-05-30 07:49] VITALS: BP 132/65; TEMP 97; O2SAT 94
[2023-05-30] MEDS ORDERED: LevoFLOXacin 250 MG TABLET PO SCH (10:10)
[2023-05-30] MEDS: LevoFLOXacin 750 MG TABLET PO SCH (11:11)
[2023-05-30 12:24] VITALS: BP 116/64; TEMP 97.3; O2SAT 98
[2023-05-30 19:28] VITALS: BP 144/73; TEMP 97.3; O2SAT 95
[2023-05-30 22:47] VITALS: BP 158/76; TEMP 97.9; O2SAT 93
[2023-05-31 05:13] VITALS: BP 131/62; TEMP 97.9; O2SAT 92
[2023-05-31 06:29] LABS: BASO % 0.5 % (0.0-1.0); EOS # 0.1 10^3/uL (0.0-0.5); EOS % 1.8 % (0.0-3.0); HEMATOCRIT 34.3 % (42.0-52.0); HEMOGLOBIN 11.7 g/dl (13.5-17.5); LYMPH % 13.2 % (24.0-44.0); MEAN CORPUSCULAR HEMOGLOBIN 31.5 pg (27.0-33.0); MEAN CORPUSCULAR HGB CONC 34.1 g/dl (32.0-36.5); MEAN CORPUSCULAR VOLUME 92.2 fl (80.0-96.0); MONO # 0.9 10^3/uL (0.0-0.8); MONO % 12.8 % (2.0-8.0); NEUTROPHILS # 5.2 10^3/uL (1.5-8.5); NEUTROPHILS % 70.3 % (36.0-66.0); PLATELET COUNT, AUTOMATED 231 10^3/uL (150-450); RED BLOOD COUNT 3.72 10^6/uL (4.30-6.10); WHITE BLOOD COUNT 7.3 10^3/uL (4.0-10.0)
[2023-05-31 06:55] LABS: ALBUMIN 2.1 G/DL (3.2-5.2); CALCIUM LEVEL 7.7 MG/DL (8.3-10.6); CREATININE FOR GFR 2.05 MG/DL (0.70-1.30); GLOMERULAR FILTRATION RATE 32.8 (>35); PHOSPHORUS LEVEL 4.2 MG/DL (2.4-5.1); POTASSIUM SERUM 4.8 MMOL/L (3.5-5.1)
[2023-05-31 14:00] VITALS: BP 144/77; TEMP 97.7; O2SAT 99
[2023-05-31 19:50] VITALS: BP 131/71; TEMP 98.1; O2SAT 95
[2023-06-01 04:47] VITALS: BP 138/66; TEMP 97.7; O2SAT 97
[2023-06-01 05:50] LABS: BASO % 0.4 % (0.0-1.0); EOS # 0.2 10^3/uL (0.0-0.5); EOS % 2.5 % (0.0-3.0); HEMATOCRIT 34.4 % (42.0-52.0); HEMOGLOBIN 11.7 g/dl (13.5-17.5); LYMPH # 1.1 10^3/uL (1.5-5.0); MEAN CORPUSCULAR HEMOGLOBIN 31.7 pg (27.0-33.0); MEAN CORPUSCULAR VOLUME 93.2 fl (80.0-96.0); MONO # 0.9 10^3/uL (0.0-0.8); MONO % 10.6 % (2.0-8.0); NEUTROPHILS % 72.1 % (36.0-66.0); PLATELET COUNT, AUTOMATED 264 10^3/uL (150-450); RED BLOOD COUNT 3.69 10^6/uL (4.30-6.10); WHITE BLOOD COUNT 8.4 10^3/uL (4.0-10.0)
[2023-06-01 06:15] LABS: ALBUMIN 2.2 G/DL (3.2-5.2); CALCIUM LEVEL 7.6 MG/DL (8.3-10.6); CREATININE FOR GFR 2.33 MG/DL (0.70-1.30); GLOMERULAR FILTRATION RATE 28.3 (>35); PHOSPHORUS LEVEL 4.5 MG/DL (2.4-5.1); POTASSIUM SERUM 5.1 MMOL/L (3.5-5.1)
[2023-06-01 14:00] VITALS: BP 120/73; TEMP 97.7; O2SAT 96
[2023-06-01 21:07] VITALS: BP 131/75; TEMP 97.7; O2SAT 95
[2023-06-02 05:56] VITALS: BP 136/73; TEMP 98.1; O2SAT 96
[2023-06-02 09:11] LABS: HEMOGLOBIN 11.9 g/dl (13.5-17.5); MEAN CORPUSCULAR HEMOGLOBIN 31.5 pg (27.0-33.0); MEAN CORPUSCULAR HGB CONC 33.1 g/dl (32.0-36.5); MEAN CORPUSCULAR VOLUME 95.2 fl (80.0-96.0); PLATELET COUNT, AUTOMATED 308 10^3/uL (150-450); RED BLOOD COUNT 3.78 10^6/uL (4.30-6.10); WHITE BLOOD COUNT 8.1 10^3/uL (4.0-10.0)
[2023-06-02 09:32] LABS: CALCIUM LEVEL 7.8 MG/DL (8.3-10.6); CREATININE FOR GFR 2.53 MG/DL (0.70-1.30); GLOMERULAR FILTRATION RATE 25.7 (>35); POTASSIUM SERUM 5.7 MMOL/L (3.5-5.1)
[2023-06-02] MEDS: NS 1,000 ML IV SCH (10:56)
[2023-06-02] MEDS: PATIROMER SORBITEX CALCIUM 8.4 GM POWDER PACKET (VELTASSA) PO ONE (11:55)
[2023-06-02 14:00] VITALS: BP 138/70; TEMP 97.9; O2SAT 98
[2023-06-02 20:59] VITALS: BP 145/74; TEMP 97.9; O2SAT 97
[2023-06-03 05:29] VITALS: BP 119/59; TEMP 97.9; O2SAT 95
[2023-06-03 06:33] LABS: HEMATOCRIT 33.5 % (42.0-52.0); HEMOGLOBIN 11.1 g/dl (13.5-17.5); MEAN CORPUSCULAR HEMOGLOBIN 31.4 pg (27.0-33.0); MEAN CORPUSCULAR HGB CONC 33.1 g/dl (32.0-36.5); MEAN CORPUSCULAR VOLUME 94.9 fl (80.0-96.0); PLATELET COUNT, AUTOMATED 291 10^3/uL (150-450); RED BLOOD COUNT 3.53 10^6/uL (4.30-6.10); WHITE BLOOD COUNT 8.1 10^3/uL (4.0-10.0)
[2023-06-03 07:04] LABS: CALCIUM LEVEL 7.1 MG/DL (8.3-10.6); CREATININE FOR GFR 2.32 MG/DL (0.70-1.30); GLOMERULAR FILTRATION RATE 28.4 (>35); POTASSIUM SERUM 5.5 MMOL/L (3.5-5.1)
[2023-06-04 06:00] VITALS: BP 145/72; TEMP 98.4; O2SAT 96
[2023-06-04 06:16] LABS: HEMATOCRIT 34.4 % (42.0-52.0); HEMOGLOBIN 11.2 g/dl (13.5-17.5); MEAN CORPUSCULAR HEMOGLOBIN 31.3 pg (27.0-33.0); MEAN CORPUSCULAR HGB CONC 32.6 g/dl (32.0-36.5); MEAN CORPUSCULAR VOLUME 96.1 fl (80.0-96.0); PLATELET COUNT, AUTOMATED 300 10^3/uL (150-450); RED BLOOD COUNT 3.58 10^6/uL (4.30-6.10); WHITE BLOOD COUNT 8.6 10^3/uL (4.0-10.0)
[2023-06-04 06:43] LABS: CALCIUM LEVEL 7.1 MG/DL (8.3-10.6); CREATININE FOR GFR 2.2 MG/DL (0.70-1.30); GLOMERULAR FILTRATION RATE 30.2 (>35); POTASSIUM SERUM 5.5 MMOL/L (3.5-5.1)
[2023-06-04] MEDS: PATIROMER SORBITEX CALCIUM 8.4 GM POWDER PACKET (VELTASSA) PO SCH (12:52)
[2023-06-04 12:53] LABS: TOTAL PROTEIN,RANDOM URINE 18.7 MG/DL (0.0-14.0)
[2023-06-04 12:58] LABS: CREATININE,RANDOM URINE 33.3 MG/DL
[2023-06-04 15:29] VITALS: BP 143/71; TEMP 97.9; O2SAT 95
[2023-06-04 20:51] VITALS: BP 161/70; TEMP 98.1; O2SAT 97
[2023-06-05 05:05] VITALS: BP 133/74; TEMP 97.2; O2SAT 94
[2023-06-05 06:39] LABS: HEMATOCRIT 32.6 % (42.0-52.0); HEMOGLOBIN 10.8 g/dl (13.5-17.5); MEAN CORPUSCULAR HEMOGLOBIN 31.3 pg (27.0-33.0); MEAN CORPUSCULAR HGB CONC 33.1 g/dl (32.0-36.5); MEAN CORPUSCULAR VOLUME 94.5 fl (80.0-96.0); PLATELET COUNT, AUTOMATED 307 10^3/uL (150-450); RED BLOOD COUNT 3.45 10^6/uL (4.30-6.10); WHITE BLOOD COUNT 9.2 10^3/uL (4.0-10.0)
[2023-06-05 07:02] LABS: CALCIUM LEVEL 7.1 MG/DL (8.3-10.6); CREATININE FOR GFR 2.21 MG/DL (0.70-1.30); GLOMERULAR FILTRATION RATE 30.1 (>35)
[2023-06-05 07:45] VITALS: O2SAT 96
[2023-06-05] MEDS ORDERED: COLA100C5 PO (12:17)
[2023-06-05] MEDS ORDERED: META1POW PO (12:17)
[2023-06-05] MEDS ORDERED: GABA-1171 PO (12:17)
[2023-06-05] MEDS ORDERED: MIRA33506 PO (12:17)
[2023-06-05] MEDS ORDERED: VELT1POW PO (12:17)
[2023-06-05] MEDS ORDERED: TRAM50TA2 PO (14:59)
== END 2023-06-05 16:17 | disposition home or self-care (01) | DRG 698 ==
LOC: M ED 11:24 → EEVIPCON 16:42 → M ED INP 16:42 → M PCU 20:20 → M MSPAV 05-30 22:44
PROVIDERS: ADMIT Student in an Organized Health Care Education/Training Program; ATTEND General Practice
PROC: B246ZZZ Ultrasonography of Right and Left Heart (ICD-10-PCS; principal; 2023-05-27)
DX: T83.511A Infection and inflammatory reaction due to indwelling urethral catheter, initial encounter (principal); A41.9 Sepsis, unspecified organism; N17.9 Acute kidney failure, unspecified; E87.1 Hypo-osmolality and hyponatremia; J98.11 Atelectasis; I5A Non-ischemic myocardial injury (non-traumatic); N39.0 Urinary tract infection, site not specified; R53.1 Weakness; K59.00 Constipation, unspecified; N31.2 Flaccid neuropathic bladder, not elsewhere classified; E78.5 Hyperlipidemia, unspecified; I11.0 Hypertensive heart disease with heart failure; G47.00 Insomnia, unspecified; N40.0 Benign prostatic hyperplasia without lower urinary tract symptoms; I50.9 Heart failure, unspecified; E87.5 Hyperkalemia; Z66 Do not resuscitate; D64.9 Anemia, unspecified; H40.9 Unspecified glaucoma; I44.0 Atrioventricular block, first degree; I25.10 Atherosclerotic heart disease of native coronary artery without angina pectoris; B96.20 Unspecified Escherichia coli [E. coli] as the cause of diseases classified elsewhere; Y84.6 Urinary catheterization as the cause of abnormal reaction of the patient, or of later complication, without mention of misadventure at the time of the procedure; G89.4 Chronic pain syndrome; B95.2 Enterococcus as the cause of diseases classified elsewhere; E83.51 Hypocalcemia; E88.09 Other disorders of plasma-protein metabolism, not elsewhere classified; Z98.41 Cataract extraction status, right eye; Z95.5 Presence of coronary angioplasty implant and graft; Z79.899 Other long term (current) drug therapy

== ENCOUNTER → 2023-06-26 | Outpatient (REF) | payer MEDICARE ==
[~2023-06-26] MED LIST: ATOR1TAB21 PO; B-1100TA2 PO; B-12100010 PO; COLA100C5 PO; ERGO500029 PO; GABA-1171 PO; GABA-282 PO; GLUC1TAB58 PO; LISI5TAB11 PO; LORA-1041; META1POW PO; MIRA33506 PO; OMEGCAP4 PO; PRES10CA2 PO; REST0.05 OU; TRAM50TA2 PO; TRAV2.5D OU; VELT1POW PO; ZOLP10TA2 PO
[2023-06-26 15:31] LABS: APPEARANCE, URINE HAZY (CLEAR); BACTERIA, URINE AUTO NEGATIVE (NEGATIVE); BILIRUBIN, URINE AUTO NEGATIVE (NEGATIVE); BLOOD, URINE BLOOD NEGATIVE (NEGATIVE); COLOR, URINE YELLOW (YELLOW); GLUCOSE, URINE (UA) AUTO NEGATIVE (NEGATIVE); KETONE, URINE AUTO NEGATIVE (NEGATIVE); LEUKOCYTE ESTERASE, URINE AUTO 2+ (NEGATIVE); MUCUS, URINE SMALL (NEGATIVE); NITRITE, URINE AUTO NEGATIVE (NEGATIVE); PROTEIN, URINE AUTO NEGATIVE (NEGATIVE); RBC, URINE AUTO 2 /HPF (0-3); SPECIFIC GRAVITY URINE AUTO 1.011 (1.002-1.035); SQUAMOUS EPITHELIAL CELL UR AU 1 /HPF (0-6); UROBILINOGEN, URINE AUTO 0.2 mg/dL (0.0-2.0); WBC, URINE AUTO 16 /HPF (0-3)
== END ==
LOC: M SMT 15:11
PROVIDERS: ATTEND Physician Assistant
DX: N39.0 Urinary tract infection, site not specified (principal)

== ENCOUNTER → 2023-07-24 | Outpatient (REF) | payer MEDICARE ==
[2023-07-24 17:26] LABS: APPEARANCE, URINE MANUAL CLEAR (CLEAR); COLOR, URINE MANUAL LT YELLOW (YELLOW)
[2023-07-24 17:27] LABS: BILIRUBIN, URINE MANUAL NEGATIVE (NEGATIVE); GLUCOSE, URINE (UA) MANUAL NEGATIVE (NEGATIVE); KETONE, URINE MANUAL NEGATIVE (NEGATIVE); PROTEIN, URINE MANUAL TRACE mg/dL (NEGATIVE); SPECIFIC GRAVITY,URINE MANUAL 1.025 (1.002-1.035); UROBILINOGEN, URINE MANUAL NORMAL (NORMAL)
[2023-07-24 17:28] LABS: BLOOD URINE MANUAL POSITIVE (NEGATIVE); LEUKOCYTE ESTERASE, URINE MAN TRACE (NEGATIVE); NITRITE, URINE MANUAL NEGATIVE (NEGATIVE)
[2023-07-24 17:39] LABS: SQUAMOUS EPITHELIAL CELL URINE SMALL AMOUNT /hpf (SMALL AMT); TRANSITIONAL EPI CELLS, URINE SMALL AMOUNT /hpf; WBC, URINE 0-1 /hpf (0-3)
[2023-07-24 17:40] LABS: BACTERIA, URINE NONE SEEN; HYALINE CAST, URINE NONE SEEN /lpf (0-1)
== END ==
LOC: EEVIPCON 17:01 → M SMT 17:01
PROVIDERS: ATTEND Physician Assistant
DX: N39.0 Urinary tract infection, site not specified (principal)

== ENCOUNTER → 2023-08-21 | Outpatient (REF) | payer MEDICARE ==
[2023-08-21 17:53] LABS: APPEARANCE, URINE CLEAR (CLEAR); BACTERIA, URINE AUTO NEGATIVE (NEGATIVE); BILIRUBIN, URINE AUTO NEGATIVE (NEGATIVE); BLOOD, URINE BLOOD NEGATIVE (NEGATIVE); COLOR, URINE YELLOW (YELLOW); GLUCOSE, URINE (UA) AUTO NEGATIVE (NEGATIVE); KETONE, URINE AUTO NEGATIVE (NEGATIVE); LEUKOCYTE ESTERASE, URINE AUTO 1+ (NEGATIVE); MUCUS, URINE SMALL (NEGATIVE); NITRITE, URINE AUTO NEGATIVE (NEGATIVE); PROTEIN, URINE AUTO NEGATIVE (NEGATIVE); RBC, URINE AUTO 2 /HPF (0-3); SPECIFIC GRAVITY URINE AUTO 1.006 (1.002-1.035); SQUAMOUS EPITHELIAL CELL UR AU 1 /HPF (0-6); TRANSITIONAL EPITHELIAL AUTO <1 /HPF; UROBILINOGEN, URINE AUTO 0.2 mg/dL (0.0-2.0); WBC, URINE AUTO 9 /HPF (0-3)
== END ==
LOC: M SMT 17:02
PROVIDERS: ATTEND Physician Assistant
DX: N39.0 Urinary tract infection, site not specified (principal)

== ENCOUNTER → 2023-12-10 | Outpatient (REF) | payer MEDICARE | LOC: M SFHCDERM 17:34 | PROVIDERS: ATTEND Physician Assistant | DX: L82.1 Other seborrheic keratosis (principal) ==

== ENCOUNTER → 2024-02-16 | Outpatient (REF) | payer MEDICARE ==
[~2024-02-16] MED LIST changes: +GABA-1172 PO; -GABA-282 PO
== END ==
LOC: M LAB REF 16:22
PROVIDERS: ATTEND Physician Assistant
DX: R30.0 Dysuria (principal)

== ENCOUNTER → 2024-02-23 | Outpatient (REF) | payer MEDICARE | LOC: M LAB REF 16:30 | PROVIDERS: ATTEND Student in an Organized Health Care Education/Training Program | DX: R30.0 Dysuria (principal) ==

== ENCOUNTER → 2024-03-01 | Outpatient (REF) | payer MEDICARE | LOC: M LAB REF 12:38 | PROVIDERS: ATTEND Student in an Organized Health Care Education/Training Program | DX: R30.0 Dysuria (principal) ==

== ENCOUNTER → 2024-03-08 | Outpatient (REF) | payer MEDICARE ==
[2024-03-08 19:17] LABS: BASO % 0.4 % (0.0-1.0); EOS # 0.1 10^3/uL (0.0-0.5); HEMOGLOBIN 12.1 g/dl (13.5-17.5); LYMPH # 1.8 10^3/uL (1.5-5.0); LYMPH % 25.2 % (24.0-44.0); MEAN CORPUSCULAR HEMOGLOBIN 31.3 pg (27.0-33.0); MEAN CORPUSCULAR HGB CONC 31.8 g/dl (32.0-36.5); MEAN CORPUSCULAR VOLUME 98.4 fl (80.0-96.0); MONO # 0.8 10^3/uL (0.0-0.8); MONO % 11.5 % (2.0-8.0); NEUTROPHILS # 4.4 10^3/uL (1.5-8.5); NEUTROPHILS % 61.5 % (36.0-66.0); PLATELET COUNT, AUTOMATED 248 10^3/uL (150-450); RED BLOOD COUNT 3.86 10^6/uL (4.30-6.10); WHITE BLOOD COUNT 7.2 10^3/uL (4.0-10.0)
[2024-03-08 19:46] LABS: ALBUMIN 3.5 G/DL (3.2-5.2); BILIRUBIN,TOTAL 0.5 MG/DL (0.3-1.2); CALCIUM LEVEL 9.4 MG/DL (8.3-10.6); CREATININE FOR GFR 1.23 MG/DL (0.70-1.30); POTASSIUM SERUM 5.4 MMOL/L (3.5-5.1); TOTAL PROTEIN 6.7 G/DL (5.7-8.2)
== END ==
LOC: M LABWUC 17:48
PROVIDERS: ATTEND Family Medicine
DX: R42 Dizziness and giddiness (principal)